=== PATIENT | male | born 2000 | race Caucasian/White ===

== ENCOUNTER 2023-02-11 06:34 | Emergency (ER) | payer OTHER ==
[~2023-02-11] VITALS: Ht 180.3 cm; Wt 95.0 kg
[2023-02-11 06:48] VITALS: O2SAT 98
[2023-02-11 07:25] LABS: BASOPHILS % 0.3 % (0.0-2.0); EOSINOPHILS % 0.4 % (0.0-5.0); HEMATOCRIT. 44.6 % (42.0-52.0); HEMOGLOBIN. 15.5 g/dL (14.0-18.0); LYMPHOCYTES % 13.7 % (20.0-50.0); MEAN CORPUSCULAR VOLUME 86.4 fL (80.0-94.0); MEAN PLATELET VOLUME 6.8 fl (7.4-10.4); MONOCYTES % 4.9 % (2.0-8.0); NEUTROPHILS % 80.7 % (40.0-76.0); PLATELET 346 x1000/uL (130-400); RED BLOOD CELL COUNT 5.16 mill/uL (4.7-6.1); RED CELL DISTRIBUTION WIDTH 13.4 % (11.6-14.6)
[2023-02-11 07:32] LABS: CHLORIDE 104 mEq/L (98-107)
[2023-02-11] MEDS ORDERED: ONDANSETRON HCL 4MG/2ML INJ IV STA (08:56)
[2023-02-11] MEDS ORDERED: SODIUM CHLORIDE 0.9% 1,000 ML IV ONE (09:00)
[2023-02-11 11:34] VITALS: TEMP 98.5
[2023-02-11 13:19] VITALS: BP 134/68; PULSE 77; RESP 15
== END 2023-02-11 13:21 | disposition home or self-care (01) ==
LOC: ER 06:34
DX: R11.2 Nausea with vomiting, unspecified (principal); Z98.890 Other specified postprocedural states
CPT/HCPCS: 99284; 96374; 96361; 80053; 83690; 85025; 36415; 93005; J2405; J7030

== ENCOUNTER 2023-02-27 23:13 | Emergency (ER) | payer OTHER ==
[~2023-02-27] VITALS: Ht 180.3 cm; Wt 95.0 kg
[2023-02-27 23:23] VITALS: BP 141/78; PULSE 63; RESP 18; TEMP 98.7; O2SAT 99
[2023-02-28] MEDS ORDERED: LIDO700A15 TP (00:23)
== END 2023-02-28 00:59 | disposition home or self-care (01) ==
LOC: ER 23:15
DX: R07.89 Other chest pain (principal); R11.2 Nausea with vomiting, unspecified
CPT/HCPCS: 71045; 93005; 99283

== ENCOUNTER 2023-12-06 15:36 | Emergency (ER) | payer OTHER ==
[~2023-12-06] VITALS: Ht 180.3 cm; Wt 86.0 kg
[~2023-12-06 15:36] MED LIST: LIDO700A15 TP
[2023-12-06 15:54] VITALS: TEMP 98.6; O2SAT 97
[2023-12-06 17:46] LABS: HEMOGLOBIN. 14.2 g/dL (14.0-18.0); MEAN CORPUSCULAR HEMOGLOBIN 30.1 pg (28.0-32.0); MEAN CORPUSCULAR HGB CONC 34.6 g/dL (31.0-37.0); MEAN CORPUSCULAR VOLUME 86.9 fL (80.0-94.0); PLATELET 322 x1000/uL (130-400); RED BLOOD CELL COUNT 4.72 mill/uL (4.7-6.1); RED CELL DISTRIBUTION WIDTH 13.9 % (11.6-14.6)
[2023-12-06 17:47] LABS: DIFFERENTIAL COMMENT 1
[2023-12-06 17:55] LABS: CARBON DIOXIDE 31 mEq/L (21-32); CHLORIDE 102 mEq/L (98-107); POTASSIUM 4.4 mEq/L (3.5-5.1); SODIUM 138 mEq/L (136-145)
[2023-12-06 17:56] LABS: CALCIUM 10.4 mg/dL (8.7-10.4)
[2023-12-06 18:00] LABS: CREATININE 1.1 mg/dL (0.6-1.3)
[2023-12-06 18:01] LABS: GLUCOSE 97 mg/dL (70-105); UREA NITROGEN BLOOD 13 mg/dL (9-23)
[2023-12-06 18:02] LABS: ALANINE AMINOTRANSFERASE 17 IU/L (10-49); ALBUMIN 4.6 g/dL (3.2-4.8); ASPARTATE AMINOTRANSFERASE 31 IU/L (<34)
[2023-12-06 18:03] LABS: BILIRUBIN DIRECT 0.2 mg/dL (<=3.0); BILIRUBIN TOTAL 0.6 mg/dL (0.1-1.0); PROTEIN TOTAL 7.5 g/dL (6.0-8.3)
[2023-12-06 18:21] LABS: PLATELET ESTIMATE NORMAL
[2023-12-06] MEDS ORDERED: FAMO-135 MT (20:53)
[2023-12-06] MEDS ORDERED: ONDA4TAB11 PO (20:53)
[2023-12-06 21:00] VITALS: BP 130/88; PULSE 80; RESP 18
== END 2023-12-06 21:00 | disposition home or self-care (01) ==
LOC: ER 15:36
DX: A05.9 Bacterial foodborne intoxication, unspecified (principal); Z98.890 Other specified postprocedural states
CPT/HCPCS: 80076; 80048; 83690; 85025; 36415; 99283; Z7610 ×2